=== PATIENT | male | born 1955 | race Caucasian/White ===

== ENCOUNTER 2017-06-09 16:51 | Inpatient (IN) | payer OTHER ==
[~2017-06-09] VITALS: Ht 193 cm; Wt 119.7 kg
--- NOTE | 2017-06-09 17:07 | ED CARDIAC/CP/PALPITATIONS ---
History of Present Illness General Chief Complaint: Chest Pain Stated Complaint: CP Source: patient, family, old records Exam Limitations: no limitations Vital Signs & Intake/Output Vital Signs & Intake/Output Vital Signs Date Time Temp Pulse Resp B/P B/P Pulse O2 O2 Flow FiO2 Mean Ox Delivery Rate 06/10 1501 97.9 82 18 114/62 92 Room Air 06/10 0918 95 Nasal 3.0L Cannula 06/10 0832 69 118/60 06/10 0831 69 118/60 06/10 0653 102/64 06/10 0640 98.0 98 20 97/60 94 06/09 2338 97.8 69 18 122/72 93 Room Air 06/09 2116 97.4 84 16 132/82 97 Room Air 06/09 1947 97.8 76 14 128/80 96 Room Air ED Intake and Output 06/10 0000 06/09 1200 Intake Total 240 Output Total Balance 240 Intake, Oral 240 Patient 255 lb Weight Weight Bed scale Measurement Method Allergies Coded Allergies: No Known Allergies (06/09/17) Reconcile Medications Amlodipine Besylate 10 MG TABLET 1 TAB PO DAILY BP (Reported) Atorvastatin Calcium 10 MG TABLET 1 TAB PO DAILY CHOLESTEROL (Reported) Lisinopril 20 MG TABLET 1 TAB PO DAILY BP (Reported) Triage Note: 62 YO MALE TO TRIAGE C/O L SIDED CHEST PAIN. STATES YESTERDAY HE STARTED WITH L ARM AND L FACIAL NUMBESS AND TODAY AND WOKE UP AND VOMITED. STATES HE STARTED THIS AFTERNOON WITH THE PAIN IN THE L SIDE OF HIS CHEST, DENIES RADIATION. DENIES SOB. EKG COMPLETED ON ARRIVAL. PT REPORTS HX OF HTN. Triage Nurses Notes Reviewed? yes Onset: Abrupt Duration: hour(s): (4), constant Timing: recent history Quality/Severity: mild, aching, tightness Location: central Radiation: shoulders Activities at Onset: rest Prior Chest Pain/Card Workup: no prior chest pain Nitro Today/Relief: 0.4 mg x 1, provided by ED, mild relief Aspirin Today: 325 mg x 1, provided by ED Associated Symptoms: facial numbness HPI: 62-year-old male history of hypertension high cholesterol presents with his for evaluation. He states that he woke around 3 AM this morning to go to the bathroom at which time he noticed left arm and facial numbness tingling. The patient states that he thought he had just slept funny went back to sleep. He was doing fine up until this afternoon around 1 PM when he began to have left- sided chest wall discomfort described as tightness and the numbness had returned. He states he became nauseous and vomited 1. No history of similar episodes in the past. The symptoms came on while at rest. He states he was been running around doing chores oh today he did not feel short of breath or have the chest pain while exerting himself. No abdominal pain. At this time the patient repeats pain is 4 out of 10. He is been compliant with taking his medication he denies alcohol tobacco use. He does report to being under increased stress (Duran Scott) Past History Travel History Traveled to [place] past 21 day No Medical History Any Pertinent Medical History? see below for history Neurological: NONE EENT: NONE Cardiovascular: hypertension, hyperlipidemia Respiratory: NONE Gastrointestinal: NONE Hepatic: NONE Renal: NONE Musculoskeletal: NONE Psychiatric: NONE Endocrine: NONE Blood Disorders: NONE Cancer(s): NONE [employer] TE[employer]ER/Reproductive: NONE Surgical History Surgical History: none Psychosocial History What is your primary language Mohawk Tobacco Use: Never used Family History Hx Contributory? No (Duran Scott) Review of Systems Review of Systems Constitutional: Reports: no symptoms, see HPI. Comments Review of systems: See HPI, All other systems negative. Constitutional, no chills no fever, no malaise HEENT: no sore throat no congestion, no ear pain Cardiovascular: chest pain , no palpitation Skin: no rashes, no change in skin Respiratory: No dyspnea no cough no sputum no hemoptysis GI: No nausea no vomiting, no diarrhea : No dysuria No hematuria, no frequency Muscle skeletal: No joint pain, no back pain, no neck pain, Neurologic: , no headache Psych: stress Heme/endocrine: No bruising Immunology: No lymphadenopathy (Duran Scott) Physical Exam Physical Exam General Appearance: well developed/nourished, alert, awake Cardiovascular: regular rate/rhythm Comments: Well-developed well-nourished person in no acute distress HEENT: Normal EENT exam; PERRL, EOMI. HEAD is atraumatic. moist mucous membranes. Neck: Supple, normal range of motion Back: Nontender, Full range of motion Cardiovascular: Regular rate and rhythm no murmur Chest /respiratory: Left chest wall tender.There were no bony deformities, no asymmetry. No respiratory distress. Patient speaking in full complete sentences. Breath sounds clear to auscultation bilaterally: NO W/R/R Abdomen: Soft, nontender nondistended, no appreciable organomegaly. Normal bowel sounds. No rebound/guarding, Extremity: No edema, full range of motion of extremities, Neuro: Alert oriented x3, motor sensory normal, cranial nerves within normal limits There were no obvious focal neurologic abnormalities. Skin: No appreciable rash on exposed skin, skin is warm and dry. Psych: Mood and affect is normal, memory and judgment is normal. Core Measures ACS in differential dx? Yes CVA/TIA Diagnosis No Sepsis Present: No Sepsis Focused Exam Completed? No (Magalis HURT,Duran) Progress Differential Diagnosis: AMI, atrial fibrillation, CHF/pulm edema, costochondritis, musculoskeletal pain, myocarditis, pancreatitis, pericarditis, pneumonia, pneumothorax, pulmonary embolism, PUD/GERD, unstable angina, tia. cva , hypertensive urgency/emergency Plan of Care: Orders Procedure Date/time Status Nothing by Mouth 06/12 B Active BASIC ELECTROLYTES PLUS BUN&CR 06/11 0600 Active Heart Healthy Diet 06/10 B Complete Weight 06/10 1611 Active Vital Signs 06/10 1611 Active Teach/Educate 06/10 161 Active Pain Treatment and Response 06/10 1611 Active Nutritional Intake, Monitor 06/10 1611 Active Isolation 06/10 1611 Active Intake & Output 06/10 1611 Active Patient Care Conference 06/10 1611 Active Activity/Ambulation 06/10 1611 Active LIPID PANEL 06/10 0600 Complete CBC WITHOUT DIFFERENTIAL 06/10 0600 Complete BASIC ELECTROLYTES PLUS BUN&CR 06/10 0600 Complete Admit to inpatient 06/10 UNK Active Weight 06/09 2250 Active Vital Signs 06/09 2156 Active Teach/Educate 06/09 2156 Active Pain Treatment and Response 06/09 2156 Active Nutritional Intake, Monitor 06/09 2156 Active Isolation 06/09 2156 Active Intake & Output 06/09 2156 Active Patient Care Conference 06/09 2156 Active Activity/Ambulation 06/09 2156 Active Pathway - chart 06/09 2034 Active Intake & Output 06/09 1942 Active Saline Lock 06/[address] in observation 06/10 1927 Active Misc Message 06/10 1927 Active ED Holding Orders 06/10 1927 Active Vital Signs 06/10 1927 Complete Code Status 06/10 1927 Active House Staff 06/09 UNK Active VTE Mechanical Prophylaxis 06/09 UNK Active Vital Signs 06/09 UNK Active Current Medications Sig/Jacob Start time Last Medication Dose Stop Time Status Admin Atorvastatin Calcium 40 MG 1700 06/10 1700 AC 06/10 (Lipitor) 1601 Amlodipine Besylate 10 MG DAILY 06/10 1000 AC 06/10 (Norvasc) 0831 Aspirin 81 MG DAILY 06/10 1000 AC 06/10 (Aspirin) 0832 Lisinopril 20 MG DAILY 06/10 1000 AC 06/10 (Prinivil) 0832 Heparin Sodium 5,000 UNIT Q8 06/09 2359 AC 06/10 (Porcine) 1532 Laboratory Tests 06/10/17 0614: Anion Gap 15, Estimated GFR > 60, BUN/Creatinine Ratio 20.0, Triglycerides 106, Cholesterol 110, LDL Cholesterol, Calc 61 L, HDL Cholesterol 28 L, Cholesterol /HDL Ratio 4, CBC w Diff NO MAN DIFF REQ, RBC 4.94, MCV 87.4, MCH 29.5, MCHC 33.8, RDW 12.6, MPV 8.4, Gran % 63.1, Lymphocytes % 25.0, Monocytes % 10.0 H, Eosinophils % 1.7, Basophils % 0.2, Absolute Granulocytes 4.1, Absolute Lymphocytes 1.6, Absolute Monocytes 0.7 H, Absolute Eosinophils 0.1, Absolute Basophils 0 06/09/171957: Troponin I < 0.01 Patient medicated with aspirin, nitroglycerin labs old records reviewed EKG reviewed with Dr. gutierrez Patient reports numbness in his left hand and chest tightness improved after nitroglycerin Case discussed with Mandeep Larose MD-who agrees with plan patient was medicated with aspirin he feels it is reasonable to bring the patient in for telemetry observation I discussed with the patient and his at length all of his lab results and need for observation which they're in agreement with Diagnostic Imaging: Viewed by Me: Radiology Read, CT Scan. Discussed w/RAD: Radiology Read, CT Scan. Radiology Impression: PATIENT: JAMES TABOR JR PRESENT AGE: 62 PATIENT ACCOUNT NO: [id number] : 55 LOCATION: [facility] ORDERING PHYSICIAN: Duran HURT SERVICE DATE: 06/09/17 EXAM TYPE: RAD - CT HEAD WO IV CONTRAST; XRY-PORTABLE CHEST XRAY EXAMINATION: CHEST PORTABLE ONE VIEW CLINICAL INFORMATION: Chest pain COMPARISON: None TECHNIQUE: Baseline portal chest 5:48 PM FINDINGS: Heart images are normal. Lungs are clear. No infiltrate. No ectopic air. No CHF. No acute osseous abnormality grossly. IMPRESSION: No active chest disease. EXAMINATION: CT OF THE HEAD WITHOUT CONTRAST CLINICAL INFORMATION: Left-sided facial numbness and headache. COMPARISON: None. TECHNIQUE: Noncontrast CT scan of the head was obtained from the base of the skull to the vertex. FINDINGS: The ventricles and cisterns are normal in size, shape and configuration. There are no extra-axial surface collections or evidence of hemorrhage. Midline structures are central. The osman/ white differentiation is maintained. The orbits appear normal bilaterally. The paranasal sinuses are clear. No fractures are seen. IMPRESSION: Unremarkable examination. DICTATED BY: Nayan Burks MD DATE/TIME DICTATED:06/09/171848 RECRUITING CONSULTANT:LOBITO DATE/TIME TRANSCRIBED:06/09/171848 CONFIDENTIAL, DO NOT COPY WITHOUT APPROPRIATE AUTHORIZATION. <Electronically signed in Other Vendor System> SIGNED BY: Nayan Burks MD 06/09/17 1853, PATIENT: JAMES TABOR JR PRESENT AGE: 62 PATIENT ACCOUNT NO: [id number] : 55 LOCATION: [facility] ORDERING PHYSICIAN: Duran HURT SERVICE DATE: 06/09/17 EXAM TYPE: RAD - CT HEAD WO IV CONTRAST; XRY- PORTABLE CHEST XRAY EXAMINATION: CHEST PORTABLE ONE VIEW CLINICAL INFORMATION: Chest pain COMPARISON: None TECHNIQUE: Baseline portal chest 5:48 PM FINDINGS: Heart images are normal. Lungs are clear. No infiltrate. No ectopic air. No CHF. No acute osseous abnormality grossly. IMPRESSION: No active chest disease. EXAMINATION: CT OF THE HEAD WITHOUT CONTRAST CLINICAL INFORMATION: Left-sided facial numbness and headache. COMPARISON: None. TECHNIQUE: Noncontrast CT scan of the head was obtained from the base of the skull to the vertex. FINDINGS: The ventricles and cisterns are normal in size, shape and configuration. There are no extra-axial surface collections or evidence of hemorrhage. Midline structures are central. The osman/white differentiation is maintained. The orbits appear normal bilaterally. The paranasal sinuses are clear. No fractures are seen. IMPRESSION: Unremarkable examination. DICTATED BY: Nayan Burks MD DATE/TIME DICTATED:06/09/171848 RECRUITING CONSULTANT:LOBITO DATE/TIME TRANSCRIBED:1848 CONFIDENTIAL, DO NOT COPY WITHOUT APPROPRIATE AUTHORIZATION. < Electronically signed in Other Vendor System> SIGNED BY: Nayan Burks MD 1852 Initial ED EKG: nsr at 90, slight st seg dep v3-v4. normal axis Rhythm Strip: normal sinus rhythm (Duran Scott) Departure Departure Time of Disposition: 1855 Disposition: STILL A PATIENT Condition: Stable Clinical Impression Primary Impression: Chest pain Referrals: Patient Has No Primary Care Dr Departure Forms: Customer Survey General Discharge Information Observation Note Spoke With: Paul Mckeon MD [facility] Patient In: Non-ED OBS Care Area Rationale for Observation: My rational for observation is as follows trend labs trend troponin cardiology consult telemetry monitoring premature discharge would BE medically harmful (Duran Scott) PA/ASSOCIATE MEDICAL DIRECTOR Co-Sign Statement Statement: ED Attending supervision documentation- [x] I saw and evaluated the patient. I have also reviewed all the pertinent lab results and diagnostic results. I agree with the findings and the plan of care as documented in the PA's/ASSOCIATE MEDICAL DIRECTOR's documentation. 06/09/17, 21:06... pt is chest pain free in ED, exam benign, mild reproducible chest wall tenderness on palpation. Given his presentation, he merits serial trops/ekgs, cards eval. [] I have reviewed the ED Record and agree with the PA's/ASSOCIATE MEDICAL DIRECTOR's documentation. [] Additions or exceptions (if any) to the PAs/ASSOCIATE MEDICAL DIRECTOR's note and plan are summarized below: [] (Shubham COCHRAN,Tom Blackmon) PA/ASSOCIATE MEDICAL DIRECTOR Co-Sign Statement Statement: ED Attending supervision documentation- x I saw and evaluated the patient. I have also reviewed all the pertinent lab results and diagnostic results. I agree with the findings and the plan of care as documented in the PA's/ASSOCIATE MEDICAL DIRECTOR's documentation. SSCP now gone [] I have reviewed the ED Record and agree with the PA's/ASSOCIATE MEDICAL DIRECTOR's documentation. [] Additions or exceptions (if any) to the PAs/ASSOCIATE MEDICAL DIRECTOR's note and plan are summarized below: [] (Glen COCHRAN,Lee) Critical Care Note Critical Care Note Critical Care Time: non-applicable (Magalis HURT,Duran)
[2017-06-09 17:14] LABS: ABSOLUTE BASOPHIL COUNT 0 /CUMM (0.0-0.2); ABSOLUTE EOSINOPHIL COUNT 0.1 /CUMM (0.0-0.7); ABSOLUTE LYMPH COUNT 2.1 /CUMM (1.2-3.4); ABSOLUTE MONOCYTE COUNT 0.6 /CUMM (0.10-0.60); BASOPHIL % 0.5 % (0.0-2.0); EOSINOPHIL % 0.7 % (0-5); HEMATOCRIT 45.6 % (42-52); MEAN CORPUSCULAR HGB 29.5 PG (27.0-31.0); MEAN CORPUSCULAR HGB CONC 33.5 G/DL (33.0-37.0); MEAN CORPUSCULAR VOLUME 87.9 FL (80.0-94.0); PLATELET COUNT 282 /CUMM (130-400); RBC DISTRIBUTION WIDTH 12.9 % (11.5-14.5); RED BLOOD CELL CT 5.19 /CUMM (4.70-6.10); WHITE BLOOD CELL COUNT 7.9 /CUMM (4.8-10.8)
[2017-06-09 17:31] LABS: PT 12.6 SEC (9.4-12.5); PTT 36 SEC (25-37)
[2017-06-09] MEDS ORDERED: ATORVASTATIN CA10 M1 PO (18:19)
[2017-06-09] MEDS ORDERED: LISINOPRIL20 M1 PO (18:22)
[2017-06-09] MEDS ORDERED: AMLODIPINE BESY10 M1 PO (18:22)
--- NOTE | 2017-06-09 18:53 | RADIOLOGY REPORT ---
EXAMINATION: CHEST PORTABLE ONE VIEW CLINICAL INFORMATION: Chest pain COMPARISON: None TECHNIQUE: Baseline portal chest 5:48 PM FINDINGS: Heart images are normal. Lungs are clear. No infiltrate. No ectopic air. No CHF. No acute osseous abnormality grossly. IMPRESSION: No active chest disease. EXAMINATION: CT OF THE HEAD WITHOUT CONTRAST CLINICAL INFORMATION: Left-sided facial numbness and headache. COMPARISON: None. TECHNIQUE: Noncontrast CT scan of the head was obtained from the base of the skull to the vertex. FINDINGS: The ventricles and cisterns are normal in size, shape and configuration. There are no extra-axial surface collections or evidence of hemorrhage. Midline structures are central. The osman/white differentiation is maintained. The orbits appear normal bilaterally. The paranasal sinuses are clear. No fractures are seen. IMPRESSION: Unremarkable examination.
--- NOTE | 2017-06-09 19:24 | History & Physical ---
IrvingShukla 06/09/171923: General Information and HPI MD Statement: I have seen and personally examined JAMES TABOR Sharon FOSTER and documented this H&P. The patient is a 62 year old M who presented with a patient stated chief complaint of chest pain radiating to jaw and left arm with arm numbness.[]. Source of Information: patient, family Exam Limitations: no limitations History of Present Illness: 62 YO M non smoker with PMH of HTN and HLD came to ED with his with chief complaint of chest pain with and left arm numbness since this morning. According to patient he was in his usual state of health since this morning when he woke up at 3 AM to go to the restroom and he noticed having left arm numbness but he ignored it and went to sleep again. Patient reported that when he woke up in the morning he again noticed having left face and arm numbness but later on in afternoon he had central chest pain, squeezing in nature, 4/10, radiating to left jaw and arm not related to exertion. Patient reported that he was sitting in his chair and watching TV when this pain started. After that patient was lying in his bed all the time and he called his who came in after 2 hours and she brought to him to ED for further evaluation. Patient denied any palpitation, sweating, nausea, vomiting, chills, fever, abdominal pain, trauma, upper respiratory tract infection, diarrhea, constipation and dysuria. In ED patient received nitroglycerin and his pain was relieved. Patient also reported that he usually takes Aleve for joint pains once a week. He is following his primary care physician regularly and he never had been admitted with any cardiac problem in hospital. ED course: Vitals: Temperature 98.8, pulse 104, respiratory rate 18, blood pressure 160/84, oxygen saturation 94% on room air Labs: WBC count 7.9, hemoglobin 15.3, hematocrit 45.6, platelet count 282, sodium 144, potassium 3.8, BUN 10, creatinine 0.7, anion gap 16, BUNs/creatinine ratio 14.3, glucose 95, calcium 9.7, AST 26, ALT 47, troponin less than 0.01 Patient received nitroglycerin in ED that relieved his pain. Allergies/Medications Allergies: Coded Allergies: No Known Allergies (06/09/17) Home Med list Amlodipine Besylate 10 MG TABLET 1 TAB PO DAILY BP (Reported) Atorvastatin Calcium 10 MG TABLET 1 TAB PO DAILY CHOLESTEROL (Reported) Lisinopril 20 MG TABLET 1 TAB PO DAILY BP (Reported) Past History Travel History Traveled to [place] past 21 day No Medical History Neurological: NONE EENT: NONE Cardiovascular: hypertension, hyperlipidemia Respiratory: NONE Gastrointestinal: NONE Hepatic: NONE Renal: NONE Musculoskeletal: NONE Psychiatric: NONE Endocrine: NONE Blood Disorders: NONE Cancer(s): NONE 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 EENTM: Reports: no symptoms. Cardiovascular: Reports: chest pain. Respiratory: Denies: orthopnea, short of breath. GI: Reports: no symptoms. Genitourinary: Reports: no symptoms. Musculoskeletal: Reports: no symptoms. Skin: Reports: no symptoms. Neurological/Psychological: Reports: numbness. Exam & Diagnostic Data Last 24 Hrs of Vital Signs/I&O Vital Signs Date Time Temp Pulse Resp B/P B/P Pulse O2 O2 Flow FiO2 Mean Ox Delivery Rate 06/09 1946 97.8 76 14 128/80 96 Room Air 06/09 1717 96 Room Air 06/09 1658 98.8 104 18 160/84 94 Room Air Physical Exam General Appearance Alert, Oriented X3, Cooperative, No Acute Distress Skin No Rashes Skin Temp/Moisture Exam: Warm/Dry Sepsis Skin Exam (color): Normal for Ethnicity HEENT Atraumatic, PERRLA, EOMI Neck Supple Cardiovascular Normal S1, Normal S2 Lungs Clear to Auscultation, Normal Air Movement Abdomen Soft, No Tenderness Neurological Normal Speech, Strength at 5/5 X4 Ext, Normal Tone, Sensation Intact Extremities No Edema Last 24 Hrs of Labs/Jim: Laboratory Tests 06/09/171957: Troponin I < 0.01 06/09/171706: Lipase Cancelled, APTT Cancelled 06/09/17 170: Anion Gap 16, Estimated GFR > 60, BUN/Creatinine Ratio 14.3, Glucose 95, Calcium 9.7, Total Bilirubin 1.1, AST 26, ALT 47, Alkaline Phosphatase 117, Troponin I < 0.01, Total Protein 8.5 H, Albumin 4.9, Globulin 3.6, Albumin/Globulin Ratio 1.4, Lipase 36, PT 12.6 H, INR 1.15, APTT 36, CBC w Diff NO MAN DIFF REQ, RBC 5.19, MCV 87.9, MCH 29.5, MCHC 33.5, RDW 12.9, MPV 8.0, Gran % 64.0, Lymphocytes % 27.1, Monocytes % 7.7, Eosinophils % 0.7, Basophils % 0.5, Absolute Granulocytes 5.0, Absolute Lymphocytes 2.1, Absolute Monocytes 0.6, Absolute Eosinophils 0.1, Absolute Basophils 0 Assessment/Plan Assessment: 62 YO M non smoker with PMH of HTN and HLD came to ED with his with chief complaint of chest pain with and left arm numbness since this morning. We will keep the patient under observation on telemetry floor to rule out any ischemic cardiac injury. Chest pain: -We will do serial EKGs and troponins to rule out any ischemic cardiac injury. -Patient could possibly have unstable angina considering his normal troponin and no changes in EKG but he has typical chest pain symptoms. -Low LIBBY score risk -Continue aspirin -Continue atorvastatin -Cardiac consult -Echocardiogram in a.m. History of hypertension: -Continue lisinopril and amlodipine. History of hyperlipidemia; -Continue Lipitor DVT prophylaxis: Mechanical and subcutaneous Lovenox CODE STATUS: Full code As Ranked By This Provider Problem List: 1. Chest pain Core Measures/Misc (11/27) Acute Coronary Syndrome ACS Diagnosis: No Congestive Heart Failure Congestive Heart Failure Diagnosis No Cerebrovascular Accident CVA/TIA Diagnosis: No VTE (View Protocol) VTE Risk Factors Age>40 No Mechanical VTE Prophylaxis d/t N/A MechProphylax Ordered No VTE Pharm Prophylaxis d/t NA PharmProphylax ordered Sepsis (View protocol) Sepsis Present: No Ul Triston Garcia MD 06/09/17 2012: Resident Review Statement Resident Statement: examined this patient, discussed with product management intern, agreed with product management intern Other Findings: 62-year-old male with past medical history significant for hypertension, on lisinopril 20 mg, amlodipine 10 mg, atorvastatin 10 mg for hyperlipidemia, no history of coronary artery disease, no history of stable or unstable angina, no history of diabetes, family history of aortic rupture in father at the age of 73 , takes OTC Aleve once weekly for back pain secondary to L4 L5-S1 disc surgery, came to emergency department for left-sided chest pain and numbness. According to the patient he woke up around 3:30 AM with left arm numbness. Around 7:30 AM, patient was having numbness and started feeling warm while sitting at home. He went out with his grandchild and came back. Around 1:30 PM patient noticed the numbness again that aggressive to his left side of the face and chest along with left arm. He also noticed some chest pain on the left side , score 4/10, pulled muscle like character, with no specific aggravating and relieving factors. Vitals in emergency department patient afebrile, initially tachycardic with heart rate 104, respiratory rate 18, blood pressure systolic 160 and diastolic 84, oxygen saturation of 98% on room air. Labs showed no leukocytosis white count 7.9, hemoglobin 15.3 and hematocrit 45.6 , platelet count of 282, no significant electrolyte abnormality troponin less than 0.01. EKG showed heart rate of 95, sinus rhythm QTC 448, non specific ST changes, no axis deviation Chest x-ray showed no active chest disease. Head CT negative for any acute intracranial finding Patient in emergency department was given 0.4 sublingual nitroglycerin and his pain was relieved after 15-20 minutes. Patient also received aspirin in emergency department. Patient placed in observation for the management of following problems Unstable angina/rule out ACS Patient's presentation is typical for an unstable anginal attack. Likelihood of having any any acute coronary event is low to moderate based on no CAD at baseline, on examination patient does not have any murmur, no signs of congestive heart failure, no acute EKG changes, and negative troponins. Patient does have history of uncontrolled hypertension, and hyperlipidemia. Family history of aortic rupture in father. HEART score of 2, indicating Moderatly risk for MACE. LIBBY score of 2. - Hemodynamically stable - Admit to telemetry - Vitals q Shift - Repeat troponins/EKG to rule out ACS - Watch for arrhythmias on telemetry floor, Including ventricle tachycardia and blocks - Cardio consult - ECHO to rule out any wall motion abnormality - Lipid panel - ASA 81mg daily - No history of cocaine use as a young adult - Continue Sublingual nitrates, B-leatha, statins and ASA - Give dinner (Heart Healthy Diet) DVT prophylaxis Patient is on subcutaneous heparin for DVT prophylaxis Diet patient is on heart healthy diet Patient is full code Patient is on pain management Paul Mckeon MD 06/09/174: Attending MD Review Statement Attending Statement Attending MD Statement: examined this patient, discuss w/resident/PA/SURGICAL SERVICES TECH, agreed w/resident/PA/SURGICAL SERVICES TECH, discussed with family, reviewed EMR data (avail), discussed with nursing Attending Assessment/Plan: Mr. Tabor is a 62-year-old male with a history of hypertension dyslipidemia, no known coronary artery disease presents with complaints of left-sided chest pain chest tightness associated with tingling in the left side of the face and arm for the past 1 day. No specific aggravating or relieving factor. Patient is very active at home and is involved in yardwork. Symptoms were not brought up exertion. Currently feeling fine without any specific symptoms. In the ED patient was given sublingual nitroglycerin which helped resolve the pain. In ED vitals blood pressure 160/84 heart rate of 104, respiratory rate of 18 and saturating 95% on room General Appearance Alert, Oriented X3, Cooperative, No Acute Distress HEENT Atraumatic, PERRLA, EOMI Neck Supple Cardiovascular Normal S1, Normal S2, no murmurs, rubs or gallops Lungs Clear to Auscultation, Normal Air Movement Abdomen Soft, No Tenderness Neurological No focal neurological deficit Extremities No Edema Assessement 1. Chest pain - r/o ACS - Low LIBBY risk candidate. Initial set of troponins has been negative Received 325 mg aspirin. 2. Hypertension 3. ST-T depression noted in the anterior leads - Plan Repeat serial EKG's and troponin. Will be a telemetry observation patient Continue home medications of lisinopril and amlodipine, besides aspirin, increase the dose of atorvastatin. Cardiology consult and echocardiogram Repeat fasting lipid profiles in the morning.
[2017-06-09 23:38] VITALS: BP 122/72
[2017-06-10 06:00] VITALS: BP 102/64
[2017-06-10 06:40] VITALS: BP 97/60
[2017-06-10 06:53] VITALS: BP 102/64
[2017-06-10 07:49] LABS: ABSOLUTE BASOPHIL COUNT 0 /CUMM (0.0-0.2); ABSOLUTE EOSINOPHIL COUNT 0.1 /CUMM (0.0-0.7); ABSOLUTE GRANULOCYTE CT 4.1 /CUMM (1.4-6.5); ABSOLUTE LYMPH COUNT 1.6 /CUMM (1.2-3.4); ABSOLUTE MONOCYTE COUNT 0.7 /CUMM (0.10-0.60); BASOPHIL % 0.2 % (0.0-2.0); EOSINOPHIL % 1.7 % (0-5); GRANULOCYTE % 63.1 % (42.2-75.2); HEMATOCRIT 43.2 % (42-52); MEAN CORPUSCULAR HGB 29.5 PG (27.0-31.0); MEAN CORPUSCULAR HGB CONC 33.8 G/DL (33.0-37.0); MEAN CORPUSCULAR VOLUME 87.4 FL (80.0-94.0); MEAN PLATELET VOLUME 8.4 FL (7.4-10.4); PLATELET COUNT 255 /CUMM (130-400); RBC DISTRIBUTION WIDTH 12.6 % (11.5-14.5); RED BLOOD CELL CT 4.94 /CUMM (4.70-6.10); WHITE BLOOD CELL COUNT 6.5 /CUMM (4.8-10.8)
--- NOTE | 2017-06-10 09:26 | PN- Att Addend ---
See Addendum Attending Addendum Attending Brief Note Patient seen and examined. He is going to have his echo done very shortly. He' s been chest pain-free since he's come into the hospital. On exam his pressure is 118/60, pulse is 69, breathing at 16-18 and afebrile at 98.4. Off note he had one episode of a blood pressure of 97/60 yesterday in the ER. He is awake alert oriented, lungs are clear to auscultation, heart is S1-S2 regular, abdomen is soft nontender and there is no clubbing cyanosis or edema. His labs have essentially been okay and his troponin is negative. His total protein is mildly elevated at 8.5. He is a 62-year-old male with a past medical history of hypertension and hyperlipidemia on lisinopril, Norvasc and a statin as an outpatient who is here with this episode of chest pain. Of concern is his EKG which to me looks like clear-cut ST depressions in the anterior lateral leads. At this point he is in observation status and I will wait to see what the creative project manager says. We'll continue the aspirin and statin and CALDERON inhibitor. He will definitely need further cardiac workup- the question is whether inpatient stress test/Versus outpatient risk stratification. If he develops ongoing chest pain or positive enzymes at that point will have to consider heparinizing him.
--- NOTE | 2017-06-10 12:20 | PN- Housestaff ---
Subjective Follow-up For: chest pain Tele-Events Since Last Visit: ST/NSR HR 65-101 Subjective: No acute events overnight. Conts to have same chest tightness Review of Systems Constitutional: Reports: see HPI. Objective Last 24 Hrs of Vital Signs/I&O Vital Signs Date Time Temp Pulse Resp B/P B/P Pulse O2 O2 Flow FiO2 Mean Ox Delivery Rate 06/10 2125 97.7 82 18 124/70 94 Room Air 06/10 1501 97.9 82 18 114/62 92 Room Air 06/10 0918 95 Nasal 3.0L Cannula 06/10 0832 69 118/60 06/10 0831 69 118/60 06/10 0653 102/64 06/10 0640 98.0 98 20 97/60 94 Intake & Output 06/11 0800 06/11 0000 06/10 1600 Intake Total 650 400 Output Total Balance 650 400 Intake, Oral 650 400 Patient 262 lb Weight Weight Bed scale Measurement Method Physical Exam General Appearance: Alert, Oriented X3, Cooperative, No Acute Distress Cardiovascular: Regular Rate, Normal S1, Normal S2 Lungs: Clear to Auscultation, Normal Air Movement Abdomen: Normal Bowel Sounds, Soft, No Tenderness Extremities: 2+ radial pulses Current Medications: Current Medications Sig/Jacob Start time Last Medication Dose Route Stop Time Status Admin Amlodipine Besylate 10 MG DAILY 06/10 1000 AC 06/10 PO 0831 Aspirin 81 MG DAILY 06/10 1000 AC 06/10 PO 0832 Atorvastatin Calcium 40 MG 1700 06/10 1700 AC 06/10 PO 1601 Heparin Sodium 5,000 UNIT Q8 06/09 2359 AC 06/10 (Porcine) SC 2157 Lisinopril 20 MG DAILY 06/10 1000 AC 06/10 PO 0832 Last 24 Hrs of Lab/Jim Results Last 24 Hrs of Labs/Mics: Laboratory Tests 06/10/17 0614: Anion Gap 15, Estimated GFR > 60, BUN/Creatinine Ratio 20.0, Triglycerides 106, Cholesterol 110, LDL Cholesterol, Calc 61 L, HDL Cholesterol 28 L, Cholesterol /HDL Ratio 4, CBC w Diff NO MAN DIFF REQ, RBC 4.94, MCV 87.4, MCH 29.5, MCHC 33.8, RDW 12.6, MPV 8.4, Gran % 63.1, Lymphocytes % 25.0, Monocytes % 10.0 H, Eosinophils % 1.7, Basophils % 0.2, Absolute Granulocytes 4.1, Absolute Lymphocytes 1.6, Absolute Monocytes 0.7 H, Absolute Eosinophils 0.1, Absolute Basophils 0 Assessment/Plan Assessment: 62 YO M non smoker with PMH of HTN and HLD came to ED with his with chief complaint of chest pain with and left arm numbness since this morning. We will keep the patient under observation on telemetry floor to rule out any ischemic cardiac injury. Chest pain: -Patient has agreed for cath on monday, NPO monday night. -Low threshold for heparin drip for CP -EKG and trops negative for acute ACS -lipid panel reveals high LDL and low HDL -Low LIBBY score risk -Continue aspirin -Continue atorvastatin -Cardiac consult -Echocardiogram results pending History of hypertension: -Continue lisinopril and amlodipine. History of hyperlipidemia; -Continue Lipitor DVT prophylaxis: Mechanical and subcutaneous Lovenox CODE STATUS: Full code Problem List: 1. Chest pain Pain Ratin Pain Location: L chest tightsness Pain Goal: Pain 4 or less Pain Plan: pain pathway Tomorrow's Labs & Rationales: bep
--- NOTE | 2017-06-10 12:57 | Cons- Cardiology ---
General Information and HPI Consulting Request Date of Consult: 06/10/17 Requested By: Paul Mckeon MD Reason for Consult: Chest pain Source of Information: patient History of Present Illness: This is a pleasant 62-year-old male with a past medical history of hypertension and hyperlipidemia who presented to [facility] with a chief complaint of moderate intensity chest tightness early this morning with some radiation to his arm and jaw; symptoms occurred at rest and were improved with nitroglycerin; he did have some nausea/diaphoresis; prior to this event he had normal exertional tolerance without exertional symptoms of any kind. Denies any headache, slurring of speech, palpitations, syncope, orthopnea, paroxysmal nocturnal dyspnea, or focal weakness. Denies any known history of obstructive coronary artery disease. Allergies/Medications Allergies: Coded Allergies: No Known Allergies (06/09/17) Home Med List: Amlodipine Besylate 10 MG TABLET 1 TAB PO DAILY BP (Reported) Atorvastatin Calcium 10 MG TABLET 1 TAB PO DAILY CHOLESTEROL (Reported) Lisinopril 20 MG TABLET 1 TAB PO DAILY BP (Reported) Current Medications: Current Medications Sig/Jacob Start time Last Medication Dose Route Stop Time Status Admin Amlodipine Besylate 10 MG DAILY 06/10 1000 AC 06/10 PO 0831 Aspirin 81 MG DAILY 06/10 1000 AC 06/10 PO 0832 Aspirin 325 MG ONCE ONE 06/09 1745 DC 06/09 PO 06/09 1746 1734 Aspirin 0 .STK-MED ONE 06/09 1738 DC PO Atorvastatin Calcium 40 MG 1700 06/10 1700 AC PO Heparin Sodium 5,000 UNIT Q8 06/09 2359 AC 06/10 (Porcine) SC 0605 Lisinopril 20 MG DAILY 06/10 1000 AC 06/10 PO 0832 Nitroglycerin 0.4 MG ONCE ONE 06/09 1745 DC 06/09 SL 06/09 1746 1734 Nitroglycerin 0 .STK-MED ONE 06/09 1738 DC SL Review of Systems Review of Systems: Review of systems as per HPI. The remainder of a 10 point review of systems was reviewed and was otherwise negative. 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 Surgical History Surgical History: non-contributory Psychosocial History Smoking Status: Never Smoked Exam & Diagnostic Data Vital Signs and I&O Vital Signs Date Time Temp Pulse Resp B/P B/P Pulse O2 O2 Flow FiO2 Mean Ox Delivery Rate 06/10 0918 95 Nasal 3.0L Cannula 06/10 0832 69 118/60 06/10 0831 69 118/60 06/10 0653 102/64 06/10 0640 98.0 98 20 97/60 94 06/09 2338 97.8 69 18 122/72 93 Room Air 06/09 2116 97.4 84 16 132/82 97 Room Air 06/09 1947 97.8 76 14 128/80 96 Room Air 06/09 1717 96 Room Air 06/09 1658 98.8 104 18 160/84 94 Room Air Intake & Output 06/10 1600 06/10 0800 06/10 0000 06/09 1600 06/09 0800 06/09 0000 Intake Total 240 Output Total Balance 240 Intake, Oral 240 Patient 255 lb Weight Weight Bed scale Measurement Method Physical Exam: General: no apparent distress. Alert. Eyes: No obvious scleral icterus. HEENT: No jugular venous distention or abnormal jugular venous pulsations. Cardiovascular: Normal intensity S1/S2. PMI not grossly displaced. Respiratory: Lungs clear to auscultation bilaterally. Abdomen: Soft, nontender with no guarding or rebound tenderness. Musculoskeletal: No clubbing or cyanosis noted, no edema Skin: No obvious rashes or ulcerations. Neurologic: No gross focal deficits noted. Lymph: No gross lymphadenopathy. Labs/Jim Results: Laboratory Tests 06/108 1707 Chemistry Sodium (137 - 145 mmol/L) 146 H Potassium (3.5 - 5.1 mmol/L) 4.2 Chloride (98 - 107 mmol/L) 104 Carbon Dioxide (22 - 30 mmol/L) 27 Anion Gap (5 - 16) 15 BUN (9 - 20 mg/dL) 14 Creatinine (0.7 - 1.2 mg/dL) 0.7 Estimated GFR (>60 ml/min) > 60 BUN/Creatinine Ratio (7 - 25 %) 20.0 Troponin I (<0.11 ng/ml) < 0.01 Triglycerides (<150 mg/dL) 106 Cholesterol (< 200 MG/DL) 110 LDL Cholesterol, Calc (65 - 129 mg/dL) 61 L HDL Cholesterol (40 - 60 mg/dL) 28 L Cholesterol/HDL Ratio (0.00 - 4.88 %) 4 Lipase Cancelled Coagulation APTT Cancelled Hematology CBC w Diff NO MAN DIFF REQ WBC (4.8 - 10.8 /CUMM) 6.5 RBC (4.70 - 6.10 /CUMM) 4.94 Hgb (14.0 - 18.0 G/DL) 14.6 Hct (42 - 52 %) 43.2 MCV (80.0 - 94.0 FL) 87.4 MCH (27.0 - 31.0 PG) 29.5 MCHC (33.0 - 37.0 G/DL) 33.8 RDW (11.5 - 14.5 %) 12.6 Plt Count (130 - 400 /CUMM) 255 MPV (7.4 - 10.4 FL) 8.4 Gran % (42.2 - 75.2 %) 63.1 Lymphocytes % (20.5 - 51.1 %) 25.0 Monocytes % (1.7 - 9.3 %) 10.0 H Eosinophils % (0 - 5 %) 1.7 Basophils % (0.0 - 2.0 %) 0.2 Absolute Granulocytes (1.4 - 6.5 /CUMM) 4.1 Absolute Lymphocytes (1.2 - 3.4 /CUMM) 1.6 Absolute Monocytes (0.10 - 0.60 /CUMM) 0.7 H Absolute Eosinophils (0.0 - 0.7 /CUMM) 0.1 Absolute Basophils (0.0 - 0.2 /CUMM) 0 03/30 1700 Chemistry Sodium (137 - 145 mmol/L) 144 Potassium (3.5 - 5.1 mmol/L) 3.8 Chloride (98 - 107 mmol/L) 102 Carbon Dioxide (22 - 30 mmol/L) 26 Anion Gap (5 - 16) 16 BUN (9 - 20 mg/dL) 10 Creatinine (0.7 - 1.2 mg/dL) 0.7 Estimated GFR (>60 ml/min) > 60 BUN/Creatinine Ratio (7 - 25 %) 14.3 Glucose (65 - 99 mg/dL) 95 Calcium (8.4 - 10.2 mg/dL) 9.7 Total Bilirubin (0.2 - 1.3 mg/dL) 1.1 AST (17 - 59 U/L) 26 ALT (21 - 72 U/L) 47 Alkaline Phosphatase (< 127 U/L) 117 Troponin I (<0.11 ng/ml) < 0.01 Total Protein (6.3 - 8.2 g/dL) 8.5 H Albumin (3.5 - 5.0 g/dL) 4.9 Globulin (1.9 - 4.2 gm/dL) 3.6 Albumin/Globulin Ratio (1.1 - 2.2 %) 1.4 Lipase (23 - 300 U/L) 36 Coagulation PT (9.4 - 12.5 SEC) 12.6 H INR (0.90 - 1.17) 1.15 APTT (25 - 37 SEC) 36 Hematology CBC w Diff NO MAN DIFF REQ WBC (4.8 - 10.8 /CUMM) 7.9 RBC (4.70 - 6.10 /CUMM) 5.19 Hgb (14.0 - 18.0 G/DL) 15.3 Hct (42 - 52 %) 45.6 MCV (80.0 - 94.0 FL) 87.9 MCH (27.0 - 31.0 PG) 29.5 MCHC (33.0 - 37.0 G/DL) 33.5 RDW (11.5 - 14.5 %) 12.9 Plt Count (130 - 400 /CUMM) 282 MPV (7.4 - 10.4 FL) 8.0 Gran % (42.2 - 75.2 %) 64.0 Lymphocytes % (20.5 - 51.1 %) 27.1 Monocytes % (1.7 - 9.3 %) 7.7 Eosinophils % (0 - 5 %) 0.7 Basophils % (0.0 - 2.0 %) 0.5 Absolute Granulocytes (1.4 - 6.5 /CUMM) 5.0 Absolute Lymphocytes (1.2 - 3.4 /CUMM) 2.1 Absolute Monocytes (0.10 - 0.60 /CUMM) 0.6 Absolute Eosinophils (0.0 - 0.7 /CUMM) 0.1 Absolute Basophils (0.0 - 0.2 /CUMM) 0 Diagnostic Data EKG Results Tracing was personally reviewed and shows sinus rhythm, borderline criteria for LVH, nonspecific mild ST depressions CXR Results No CHF or mediastinal widening Other Results Telemetry tracings were personally reviewed and showed sinus rhythm Assessment/Plan Assessment/Plan 1. Nitroglycerin responsive chest discomfort with ECG changes concerning for anginal episode 2. History of hypertension 3. History of hyperlipidemia Given the patient's presentation as described above and cardiac risk factors I am concerned about the possibility of an ischemic etiology of his recent nitro responsive chest discomfort. I had an extensive discussion with the patient and his today regarding additional options including nuclear stress test versus proceeding directly for cardiac catheterization for definitive coronary anatomy assessment. At this time he wishes to proceed directly to cardiac catheterization which is reasonable. Would not initiate heparin drip at this time unless he has recurrent chest discomfort prior to the cardiac catheterization. He should be n.p.o. after midnight on Monday. Continue on aspirin and statin therapy; would hold his CALDERON inhibitor prior to the cardiac catheterization. Echocardiogram is pending. He should be maintained on telemetry. The case was discussed at length with the medical team. Osmel Larose MD [facility] Consult Acknowledgment - Thank you for your consult request.
--- NOTE | 2017-06-10 14:51 | Admission Certification ---
Admission Certification Certification Statement - As attending physician, I certify that at the time of - admission, based on clinical presentation, severity of - symptoms, need for further diagnostic testing and - therapeutic interventions, and risk of adverse outcomes - without in-hospital treatment, in my clinical assessment, - this patient requires an acute hospital stay for a minimum - of two nights or longer. I have also considered psychsocial - factors such as support system, advanced age, financial - issues, cognitive issues, and failed out-patient treatments, - past re-admission history, safety of patient, and lack of - compliance as applicable. Specific rationale supporting this admission is: Patient with significant risk factors in terms of hypertension and hyperlipidemia with chest pain, typical history and ST depressions. Needs to be admitted for suspected ACS.
[2017-06-10 15:01] VITALS: BP 114/62
--- NOTE | 2017-06-10 19:55 | Event Note ---
Event Note Event Note: Echo was read but did not cross over to [facility] due to [facility] system error. Echo (which I read personally) shows: Normal global left ventricular size, wall thickness, systolic function with no obvious regional wall motion abnormalities. Normal left ventricular ejection fraction visually estimated at 55 %. Normal right ventricular size and function. No evidence of pulmonary hypertension. No pericardial effusion. Osmel Larose MD [facility]
[2017-06-10 21:25] VITALS: BP 124/70
[2017-06-11 07:19] VITALS: BP 120/64
--- NOTE | 2017-06-11 11:53 | PN- Att Addend ---
Attending Addendum Attending Brief Note Patient seen and examined. He's been chest pain-free since he's come into the hospital. On exam his pressure is 120/60, pulse is 69, breathing at 16-18 and afebrile at 98.4. He is awake alert oriented, lungs are clear to auscultation, heart is S1-S2 regular, abdomen is soft nontender and there is no clubbing cyanosis or edema. His labs have essentially been okay and his troponin is negative. His total protein is mildly elevated at 8.5. He is a 62-year-old male with a past medical history of hypertension and hyperlipidemia on lisinopril, Norvasc and a statin as an outpatient who is here with this episode of chest pain. Of concern is his EKG which has clear-cut ST depressions in the anterior lateral leads. Given his risk factors, EKG changes and clinical symptoms the plan is for a cardiac cath in a.m as our suspicion for ACS is very high. We are continuing the aspirin and statin and his blood pressure medicines that he was taking as an outpatient. If he develops chest pain again, new EKG changes or makes positive enzymes will start him on IV heparin.
--- NOTE | 2017-06-11 12:30 | PN- Cardiology ---
Subjective Subjective: Resting comfortably with no recurrent chest discomfort. Objective Vital Signs and I&Os Vital Signs Date Time Temp Pulse Resp B/P B/P Pulse O2 O2 Flow FiO2 Mean Ox Delivery Rate 06/11 0853 78 120/64 06/11 0953 78 120/64 06/11 0719 97.8 78 12 120/64 93 Room Air 06/11 0000 94 Room Air 06/10 2125 97.7 82 18 124/70 94 Room Air 06/10 1501 97.9 82 18 114/62 92 Room Air Intake & Output 06/11 1600 06/11 0800 06/11 0000 06/10 1600 06/10 0806/10 0000 Intake Total 0 650 400 240 Output Total Balance 0 650 400 240 Intake, Oral 0 650 400 240 Patient 262 lb 255 lb Weight Weight Bed scale Bed scale Measurement Method Physical Exam: General: no apparent distress. Alert. Eyes: No obvious scleral icterus. HEENT: No jugular venous distention or abnormal jugular venous pulsations. Cardiovascular: Normal intensity S1/S2. PMI not grossly displaced. Respiratory: Lungs clear to auscultation bilaterally. Abdomen: Soft, nontender with no guarding or rebound tenderness. Musculoskeletal: No clubbing or cyanosis noted Skin: No obvious rashes or ulcerations. Neurologic: No gross focal deficits noted. Lymph: No gross lymphadenopathy. Current Medications: Current Medications Sig/Jacob Start time Last Medication Dose Route Stop Time Status Admin Amlodipine Besylate 10 MG DAILY 06/10 1000 AC 06/11 PO 0953 Aspirin 81 MG DAILY 06/10 1000 AC 06/11 PO 0952 Atorvastatin Calcium 40 MG 1700 06/10 1700 AC 06/10 PO 1601 Heparin Sodium 5,000 UNIT Q8 06/09 2359 AC 06/11 (Porcine) SC 0545 Lisinopril 20 MG DAILY 06/10 1000 AC 06/11 PO 0953 Results Last 48 Hrs of Labs/Mics: Laboratory Tests 06/11/17 0710: Anion Gap 13, Estimated GFR > 60, BUN/Creatinine Ratio 27.1 H 06/10/17 0614: Anion Gap 15, Estimated GFR > 60, BUN/Creatinine Ratio 20.0, Triglycerides 106, Cholesterol 110, LDL Cholesterol, Calc 61 L, HDL Cholesterol 28 L, Cholesterol /HDL Ratio 4, CBC w Diff NO MAN DIFF REQ, RBC 4.94, MCV 87.4, MCH 29.5, MCHC 33.8, RDW 12.6, MPV 8.4, Gran % 63.1, Lymphocytes % 25.0, Monocytes % 10.0 H, Eosinophils % 1.7, Basophils % 0.2, Absolute Granulocytes 4.1, Absolute Lymphocytes 1.6, Absolute Monocytes 0.7 H, Absolute Eosinophils 0.1, Absolute Basophils 0 06/09/171957: Troponin I < 0.01 06/09/171706: Lipase Cancelled, APTT Cancelled 06/09/17 170: Anion Gap 16, Estimated GFR > 60, BUN/Creatinine Ratio 14.3, Glucose 95, Calcium 9.7, Total Bilirubin 1.1, AST 26, ALT 47, Alkaline Phosphatase 117, Troponin I < 0.01, Total Protein 8.5 H, Albumin 4.9, Globulin 3.6, Albumin/Globulin Ratio 1.4, Lipase 36, PT 12.6 H, INR 1.15, APTT 36, CBC w Diff NO MAN DIFF REQ, RBC 5.19, MCV 87.9, MCH 29.5, MCHC 33.5, RDW 12.9, MPV 8.0, Gran % 64.0, Lymphocytes % 27.1, Monocytes % 7.7, Eosinophils % 0.7, Basophils % 0.5, Absolute Granulocytes 5.0, Absolute Lymphocytes 2.1, Absolute Monocytes 0.6, Absolute Eosinophils 0.1, Absolute Basophils 0 Recent Imaging Studies: Telemetry tracings were personally reviewed and shows sinus rhythm Echocardiogram which has not crossed over into [facility] showed Normal global left ventricular size, wall thickness, systolic function with no obvious regional wall motion abnormalities. Normal left ventricular ejection fraction visually estimated at 55 %. Normal right ventricular size and function. No evidence of pulmonary hypertension. No pericardial effusion. Osmel Larose MD [facility] Assessment/Plan Assessment/Plan 1. Nitroglycerin responsive chest discomfort with ECG changes concerning for anginal episode 2. History of hypertension 3. History of hyperlipidemia Remained stable without recurrent chest discomfort. No significant arrhythmias on telemetry. Echocardiogram as above showed no obvious wall motion abnormalities. Again discussed possible options for further assessment and he continues to wish to pursue cardiac catheterization for definitive coronary anatomy assessment. He should be n.p.o. after midnight for transfer to [facility] for cardiac catheterization tomorrow. Would hold his CALDERON inhibitor for now. Osmel Larose MD [facility] Continue telemetry? Yes
[2017-06-11 14:00] VITALS: BP 108/70
--- NOTE | 2017-06-11 14:38 | Patient Discharge Instructions ---
Discharge Instructions General Discharge Information Special Instructions: - Please follow up with your press clipper Dr. Larose within 1-2 weeks of discharge after Cardiac Catherization in [facility]. - Please follow up with your primary care physician within 1-2 weeks of discharge. Inform your primary care physician of this admission to [facility]. - Continue your current medications per discharge instructions. - Please watch for these problems: Fever, Chills, Nausea, Vomiting, Shortness of Breath, Productive Cough, Chest Pain/Discomfort, Abdominal Pain, Active Bleeding or Bloody urine/stool. Diet Continue normal diet: Yes Recommended Diet: Heart Healthy Activity Full Activity/No Limits: Yes Acute Coronary Syndrome Inclusion Criteria At DC or during hospital stay patient has or had the following: ACS DIAGNOSIS No Discharge Core Measures Meds if any: Prescribed or Continued at Discharge Meds if any: NOT Prescribed or Continued at Discharge Congestive Heart Failure Inclusion Criteria At DC or during hospital stay patient has or had the following: CHF DIAGNOSIS No Discharge Core Measures Meds if any: Prescribed or Continued at Discharge Meds if any: NOT Prescribed or Continued at Discharge Cerebrovascular accident Inclusion Criteria At DC or during hospital stay patient has or had the following: CVA/TIA Diagnosis No Discharge Core Measures Meds if any: Prescribed or Continued at Discharge Meds if any: NOT Prescribed or Continued at Discharge Venous thromboembolism Inclusion Criteria VTE Diagnosis No VTE Type NONE VTE Confirmed by (Test) NONE Discharge Core Measures - Per Current guidelines, there needs to be overlap - treatment for the first 5 days of Warfarin therapy. - If discharged on Warfarin prior to 5 days of - overlap therapy, the patient will need to be - assessed for post discharge needs including - *Post discharge parental anticoagulation - *Warfarin and/or parental anticoagulation education - *Follow up date to check INR post discharge At least 5 days overlap therapy as Inpatient No Meds if any: Prescribed or Continued at Discharge Note: Overlap Therapy is Warfarin and Anticoagulant Meds if any: NOT Prescribed or Continued at Discharge
[2017-06-11 23:03] VITALS: BP 102/60
[2017-06-12 06:39] VITALS: BP 102/62
--- NOTE | 2017-06-12 07:06 | PN- Housestaff ---
See Addendum Subjective Follow-up For: Chest pain Tele-Events Since Last Visit: Sinus rhythm with HR between 64-76 Subjective: No overnight events. Patient remained afebrile overnight. Seen and examined this morning. Patient reported had same mild chest discomfort. He denied any palpitation, short of breath, sweating, nausea, vomiting, abdominal pain, diarrhea and dysuria. Patient is nothing by mouth and he is going for cardiac cath today. Review of Systems Constitutional: Reports: see HPI. Objective Last 24 Hrs of Vital Signs/I&O Vital Signs Date Time Temp Pulse Resp B/P B/P Pulse O2 O2 Flow FiO2 Mean Ox Delivery Rate 06/12 0639 97.4 61 18 102/62 95 Room Air 06/11 2303 98.3 79 16 102/60 95 Room Air 06/11 1400 97.6 86 20 108/70 92 Room Air 06/11 0953 78 120/64 06/11 0953 78 120/64 Intake & Output 06/12 0800 06/12 0000 06/11 1600 Intake Total 600 480 600 Output Total Balance 600 480 600 Intake, IV 600 Intake, Oral 0 480 600 Number 0 1 1 Bowel Movements Patient 264 lb Weight Physical Exam General Appearance: Alert, Oriented X3, Cooperative Skin: No Rashes Skin Temp/Moisture Exam: Warm/Dry Sepsis Skin Exam (color): Normal for Ethnicity HEENT: Atraumatic, PERRLA, EOMI Neck: Supple Cardiovascular: Normal S1, Normal S2 Lungs: Clear to Auscultation Abdomen: Soft, No Tenderness Neurological: Normal Speech, Strength at 5/5 X4 Ext, Normal Tone, Sensation Intact Extremities: No Edema Assessment/Plan Assessment: 62 YO M non smoker with PMH of HTN and HLD came to ED with his with chief complaint of chest pain with and left arm numbness since this morning. We are following the patient on telemetry for follow problems: Chest pain: -Patient has agreed for cath today, NPO. -Low threshold for heparin drip for CP -EKG and trops negative for acute ACS -Lipid panel reveals high LDL and low HDL -Low LIBBY score risk -Continue aspirin -Continue atorvastatin -Echocardiogram negative for any wall motion abnormalities with normal ejection fraction 55%. -Possible options for further assessment were discussed with patient and he continued to wish for cardiac cath for definite coronary artery anatomy assessment. History of hypertension: -Continue amlodipine. -Lisinopril was discontinued as recommended by cardiology. History of hyperlipidemia; -Continue Lipitor DVT prophylaxis: Mechanical and subcutaneous Lovenox CODE STATUS: Full code Problem List: 1. Chest pain Pain Ratin Pain Location: none Pain Goal: Remain pain free Pain Plan: pain pathway Tomorrow's Labs & Rationales: none
--- NOTE | 2017-06-12 07:50 | Discharge Summary ---
Visit Information Visit Dates Admission Date: 06/10/17 Discharge Date: 06/12/2017 Hospital Course Course Attending Physician: Paul Mckeon MD Primary Care Physician: Gregg Grigsby MD Hospital Course: Mr. Strauss is 62-year-old male with past medical history significant for hypertension, hyperlipidemia, chronic back pain secondary to L4 L5-S1 disc surgery, no history of coronary artery disease, presented to ED with cc of left- sided chest pain and numbness. Vitals in emergency department patient afebrile, initially tachycardic with heart rate 104, respiratory rate 18, blood pressure systolic 160 and diastolic 84, oxygen saturation of 98% on room air. Labs pertinent to no leukocytosis white count 7.9, hemoglobin 15.3 and hematocrit 45.6, platelet count of 282, no significant electrolyte abnormality troponin less than 0.01. EKG showed heart rate of 95, sinus rhythm QTC 448, non specific ST changes, no axis deviation Chest x-ray showed no active chest disease. Head CT negative for any acute intracranial finding. Patient in emergency department was given 0.4 sublingual nitroglycerin and his pain was relieved after 15-20 minutes. Patient also received aspirin in emergency department. Patient was placed in observation for the management of following problems Unstable angina/rule out ACS Troponins negative 2, EKG showed some ST changes in the anterior lateral leads concerning for angina. Cardiology consultation was obtained with recommendation to hold off IV heparin drip unless patient developed recurrent chest discomfort. Patient was continued on aspirin and statin therapy. CALDERON inhibitor lisinopril was put on hold. Echocardiogram was obtained that revealed Normal global left ventricular size, wall thickness, systolic function with no obvious regional wall motion abnormalities. Normal left ventricular ejection fraction visually estimated at 55 %. Normal right ventricular size and function. No evidence of pulmonary hypertension. No pericardial effusion. Different options were discussed with the patient for further assessment of his chest pain nuclear stress test versus catheterization however patient insisted to proceed with cardiac cath for definitive coronary anatomy assessment. Patient remained asymptomatic during his 2 days hospital stay and was made n.p.o. on Monday midnight for cath 04/16. Allergies: Coded Allergies: No Known Allergies (06/09/17) Disposition Summary Disposition Principal Diagnosis: Anginal pain Additional Diagnosis: Hypertension, hyperlipidemia Discharge Disposition: other general hospital Discharge Instructions General Discharge Information Code Status: Full Code Patient's Diet: N.p.o. for cardiac cath Patient's Activity: As tolerated Follow-Up Instructions/Appts: - Please follow up with your asset protection associate Dr. Larose within 1-2 weeks of discharge after Cardiac Catherization in [facility]. - Please follow up with your primary care physician within 1-2 weeks of discharge. Inform your primary care physician of this admission to . - Continue your current medications per discharge instructions. - Please watch for these problems: Fever, Chills, Nausea, Vomiting, Shortness of Breath, Productive Cough, Chest Pain/Discomfort, Abdominal Pain, Active Bleeding or Bloody urine/stool. Medications at Discharge Discharge Medications: Stop taking the following medications: Lisinopril (Lisinopril) 20 MG TABLET ORAL DAILY Qty = 90 Continue taking these medications: Atorvastatin Calcium (Atorvastatin Calcium) 10 MG TABLET 1 Tablet ORAL DAILY Qty = 90 Comments: Last Taken:06/11/17 Time: 5:00 PM Amlodipine Besylate (Amlodipine Besylate) 10 MG TABLET 1 Tablet ORAL DAILY Qty = 90 Comments: Last Taken:06/12/17 Time: 9:00 AM Start taking the following new medications: Aspirin (Aspirin*) 81 MG TAB.CHEW 1 Tablet ORAL DAILY Qty = 30 No Refills Comments: Last Taken:06/12/17 Time: 9:00 AM Copies To: Seb COCHRAN,Gregg Mcleod; Thuan COCHRAN,Mandeep
[2017-06-12] MEDS ORDERED: ASPIRIN81 M4 PO (08:16)
[2017-06-12 08:59] VITALS: BP 120/76
--- NOTE | 2017-06-12 11:07 | PN- Cardiology ---
Subjective Subjective: Resting comfortably. No recurrent chest discomfort. Objective Vital Signs and I&Os Vital Signs Date Time Temp Pulse Resp B/P B/P Pulse O2 O2 Flow FiO2 Mean Ox Delivery Rate 06/12 0859 64 120/76 06/12 0639 97.4 61 18 102/62 95 Room Air 06/11 2303 98.3 79 16 102/60 95 Room Air 06/11 1400 97.6 86 20 108/70 92 Room Air Intake & Output 06/12 1600 06/12 0800 06/12 0000 06/11 1600 06/11 0800 06/11 0000 Intake Total 600 480 600 0 650 Output Total Balance 600 480 600 0 650 Intake, IV 600 Intake, Oral 0 480 600 0 650 Number 0 1 1 Bowel Movements Patient 264 lb 262 lb Weight Weight Bed scale Measurement Method Physical Exam: General: no apparent distress. Alert. Eyes: No obvious scleral icterus. HEENT: No jugular venous distention or abnormal jugular venous pulsations. Cardiovascular: Normal intensity S1/S2. PMI not grossly displaced. Respiratory: Lungs clear to auscultation bilaterally. Abdomen: Soft, nontender with no guarding or rebound tenderness. Musculoskeletal: No clubbing or cyanosis noted Skin: No obvious rashes or ulcerations. Neurologic: No gross focal deficits noted. Lymph: No gross lymphadenopathy. Current Medications: Current Medications Sig/Jacob Start time Last Medication Dose Route Stop Time Status Admin Amlodipine Besylate 10 MG DAILY 06/10 1000 AC 06/12 PO 0859 Aspirin 81 MG DAILY 06/10 1000 AC 06/12 PO 0858 Atorvastatin Calcium 40 MG 1700 06/10 1700 AC 06/11 PO 1610 Dextrose/Sodium 1,000 ML Q13H 06/11 2355 06/12 Chloride IV 0000 Heparin Sodium 5,000 UNIT Q8 06/09 2359 AC 06/12 (Porcine) SC 0536 Lisinopril 20 MG DAILY 06/10 1000 DC 06/11 PO 0953 Patient Medication 1 ED ONE ONE 06/12 1115 Teaching ED 06/12 1116 Results Last 48 Hrs of Labs/Mics: Laboratory Tests 06/11/17 0710: Anion Gap 13, Estimated GFR > 60, BUN/Creatinine Ratio 27.1 H Recent Imaging Studies: Telemetry tracings were personally reviewed and shows sinus rhythm Assessment/Plan Assessment/Plan 1. Nitroglycerin responsive chest discomfort with ECG changes concerning for anginal episode 2. History of hypertension 3. History of hyperlipidemia Remains stable without recurrent chest discomfort. No significant arrhythmias on telemetry. Again discussed possible options for further assessment and he continues to wish to pursue cardiac catheterization for definitive coronary anatomy assessment. He remains n.p.o. and will be transferred to [facility] today for cardiac catheterization. Osmel Larose MD [facility] Continue telemetry? Yes
--- NOTE | 2017-06-12 18:10 | ECHOCARDIOGRAM REPORT ---
JAMES TABOR Age: 62 : 1955 Gender: M Exam Date: 06/10/2017 08:55 Exam Location: 1 [address] Ht (in): 76 Wt (lb): 255 BSA: 2.52 BP: 102 / 64 Ordering Physician: Triston Tee MD Referring Physician: Mandeep Larose M.D. Technologist: Riri Massey Room Number: [id number] Indications: MYOCARDIAL ISCHEMIA/TX Rhythm: Technical Quality: Fair FINDINGS Left Ventricle Normal global left ventricular size, wall thickness, systolic function with no obvious regional wall motion abnormalities. Normal left ventricular ejection fraction visually estimated at 55 %. Right Ventricle Normal right ventricular size and function. Right Atrium Normal right atrial size. Left Atrium Normal left atrial size. Mitral Valve Structurally normal mitral valve. No mitral stenosis. Trace mitral regurgitation. Aortic Valve No aortic stenosis. Trileaflet aortic valve. Tricuspid Valve Structurally normal tricuspid valve. Trace tricuspid regurgitation. No evidence of pulmonary hypertension. Pulmonic Valve Pulmonic valve not well visualized, grossly normal. Pericardium No pericardial effusion. Great Vessels Normal size aortic root. CONCLUSIONS Normal global left ventricular size, wall thickness, systolic function with no obvious regional wall motion abnormalities. Normal left ventricular ejection fraction visually estimated at 55 %. Normal right ventricular size and function. No evidence of pulmonary hypertension. No pericardial effusion. Mandeep Larose M.D. (Electronically Signed) Final Date: 10 June 2017 18:43 Amended: 12 June 2017 09:59 MEASUREMENTS (Male / Female) Normal Values 2D ECHO LV Diastolic Diameter PLAX 5.4 cm 4.2 - 5.9 / 3.9 - 5.3 cm LV Systolic Diameter PLAX 3.1 cm 2.1 - 4.0 cm LV Fractional Shortening PLAX 42.6 % 25 - 46 % LV Ejection Fraction 2D Teich 73.2 % IVS Diastolic Thickness 0.7 cm LVPW Diastolic Thickness 0.9 cm LV Relative Wall Thickness 0.3 LA Systolic Diameter LX 4.4 cm 3.0 - 4.0 / 2.7 - 3.8 cm LA Volume 37.0 cm 18 - 58 / 22 - 52 cm Ascending Aorta Diameter 3.3 cm DOPPLER AV Peak Velocity 148.0 cm/s AV Peak Gradient 8.8 mmHg AV Mean Velocity 98.4 cm/s AV Mean Gradient 5.0 mmHg AV Velocity Time Integral 28.7 cm LVOT Peak Velocity 108.0 cm/s LVOT Peak Gradient 4.7 mmHg LVOT Mean Velocity 71.5 cm/s LVOT Mean Gradient 2.0 mmHg LVOT Velocity Time Integral 18.9 cm MV Peak Velocity 85.8 cm/s MV Peak Gradient 2.9 mmHg MV Mean Velocity 51.0 cm/s MV Mean Gradient 1.0 mmHg Mitral E Point Velocity 52.3 cm/s Mitral A Point Velocity 63.2 cm/s Mitral E to A Ratio 0.8 MV PHT Velocity 70.8 cm/s MV Deceleration Costilla 163.0 cm/s MV Pressure Half Time 130.3 ms MV Area PHT 1.7 cm MV Deceleration Time 380.0 ms TR Peak Velocity 146.0 cm/s TR Peak Gradient 8.5 mmHg Right Atrial Pressure 10.0 mmHg Pulmonary Artery Systolic Pressu 18.5 mmHg Right Ventricular Systolic Press 18.5 mmHg PV Peak Velocity 152.0 cm/s PV Peak Gradient 9.2 mmHg PV Mean Velocity 105.0 cm/s PV Mean Gradient 5.0 mmHg PV Velocity Time Integral 27.9 cm LV E' Lateral Velocity 7.4 cm/s Mitral E to LV E' Lateral Ratio 7.1 LV E' Septal Velocity 6.1 cm/s Mitral E to LV E' Septal Ratio 8.6
== END 2017-06-12 11:30 | disposition short-term general hospital (02) | DRG 311 ==
LOC: ERH 16:51 → ERHI 19:28 → ENRESERV 20:50 → ENTRNSPT 21:16 → 1NO 21:33 → CMPTRNSPT 21:37 → 1NO 06-10 14:50 → ENPENDDIS 06-12 10:29 → 1NO 06-12 11:30
PROVIDERS: Emergency Medicine; Student in an Organized Health Care Education/Training Program
DX: I20.9 Angina pectoris, unspecified (principal); E78.5 Hyperlipidemia, unspecified; I10 Essential (primary) hypertension; Z98.1 Arthrodesis status; M54.9 Dorsalgia, unspecified; R68.84 Jaw pain; M79.603 Pain in arm, unspecified; R94.31 Abnormal electrocardiogram [ECG] [EKG]
CPT/HCPCS: 1NSP; 36415; 36592; 71045; 82436; 93005; 93010; C8929; J1644; J3490; J7042; Q9957